=== PATIENT | male | born 1990 | race African-American/Black ===

== ENCOUNTER → 2017-01-05 | Outpatient (REF) | payer OTHER ==
[2017-01-05 19:16] LABS: TOTAL PROTEIN 8.5 GM/DL (6.4-8.2)
[2017-01-05 20:22] LABS: REASON FOR REVIEW COMPREHENSIVE REVIEW
[2017-01-08 00:06] LABS: FREE LAMBDA LIGHT CHAINS SERUM 14.99 mg/L (5.71-26.30); KAPPA/LAMBDA RATIO SERUM 1.11 (0.26-1.65)
[2017-01-09 13:08] LABS: ALBUMIN % 58.8 % (55.8-66.1); GAMMA GLOBULIN % 15.7 % (11.1-18.8)
== END ==
LOC: M LAB REF 16:57
PROVIDERS: ATTEND Internal Medicine Medical Oncology
DX: D64.9 Anemia, unspecified (principal)

== ENCOUNTER → 2017-03-07 | Outpatient (REF) | payer OTHER ==
[2017-03-07 18:36] LABS: INR 0.92
== END ==
LOC: M LABDRAW1 17:31
PROVIDERS: ATTEND Physical Medicine & Rehabilitation
DX: Z01.818 Encounter for other preprocedural examination (principal); M47.896 Other spondylosis, lumbar region